=== PATIENT | female | born 1995 | race Caucasian/White ===

== ENCOUNTER 2021-03-15 08:00 | Outpatient (RCR) | payer BC, SELFPAY ==
[2021-03-13 13:31] LABS: Hematocrit 38.5 % (37.0-47.0); Hemoglobin 13.4 g/dL (12.0-15.0)
[2021-03-13 13:45] LABS: Glucose 1 Hour PP 50gm Dose 105 mg/dL
[2021-03-13 14:03] LABS: Vitamin D 25 Hydroxy 85.8 ng/mL
[2021-03-13 14:26] LABS: HIV 1/2 Ab P24 Ag Result Negative (Negative)
[2021-03-15] MEDS: RHO(D) IMMUNE GLOBULIN 300 MCG/2 ML SYRINGE IM (07:25)
== END 2021-06-11 23:59 | disposition home or self-care (01) ==
LOC: ANHLAB 08:00
PROVIDERS: Visit Provider Obstetrics & Gynecology
DX: Z11.4 Encounter for screening for human immunodeficiency virus [HIV] (principal); Z29.13 Encounter for prophylactic Rho(D) immune globulin; O36.0190 Maternal care for anti-D [Rh] antibodies, unspecified trimester, not applicable or unspecified; Z3A.00 Weeks of gestation of pregnancy not specified
CPT/HCPCS: 36415; 82306; 82947; 85014; 85018; 85461; 86703; 90384; 96372; G0432; J2790

== ENCOUNTER 2021-05-29 04:52 | Inpatient (IN) | payer BC, SELFPAY ==
[2021-05-29] VITALS (64 sets, daily range): BP systolic 106–132; BP diastolic 60–95; PULSE 25–125; RESP 16–18; TEMP 36.6–37.1; O2SAT 79–100; BMI 27.3
--- NOTE | 2021-05-29 04:52 | LDADM ---
This patient, Albertina Parkinson, was admitted to Labor/Delivery/Recovery 105 on 05/29/21 at 04:52. Plans for labor, pain management and were discussed with patient. Patient/family oriented to hospital policies and general routines including ID bracelet, bed and alarms, visiting hours, pain management, procedures, bathroom and other care routines, personal items, smoking policy, room service/diet and guest tray routines, security routines, and visiting hours. Patient/Family are encouraged to report perceived risks to care and to ask questions if they do not understand what they are told or what they should do. See OBIX for further documentation.
--- NOTE | 2021-05-29 05:08 | WPDANESEPP ---
Anes - Eval Pre Procedure Procedure: labor epidural Date/Time: 05/29/21 05:08 Surgeon: nazia Preop Diagnosis: pain during labor Pre Op Diagnosis: IOL Patient Data Age: 25 Gender: F Height: Weight: Allergies Allergy/AdvReac Type Severity Reaction Status Date / Time No Known Allergies Allergy Verified 03/15/21 07:25 Home Medications Medication Instructions Recorded Confirmed Type PNV cmb#95-ferrous fumarate-FA 1 tablet PO DAILY 05/02/21 05/02/21 History [] Patient hx anesthesia problems: none Family hx anesthesia problems: none Results Review: All pre-operative results and documents have been reviewed as part of the pre-operative evaluation. PMFSH Past Medical History Medical History (Updated 05/29/21 @ 05:08 by Loreta Wild CRNA) IUP (intrauterine ), incidental Family History Family History (Updated 05/02/21 @ 12:45 by Jojo Gandhi RN) Other No pertinent family history Social History Social History Substance use: never Spiritual care concerns: No Exam Day of Procedure 05/29/21 05:08
[2021-05-29 05:28] LABS: Basophils Absolute Auto 0.1 K/mm3 (0.0-0.1); Basophils Percent Auto 0.4 % (0.2-1.2); Eosinophils Absolute Auto 0.1 K/mm3 (0-0.3); Eosinophils Percent Auto 0.6 % (0-4.4); Hematocrit 35.6 % (37.0-47.0); Hemoglobin 12.4 g/dL (12.0-15.0); Immature Granulocyte Absolute 0.08 K/mm3 (0.00-0.031); Immature Granulocyte Percent A 0.6 % (0-0.5); Lymphocytes Absolute Auto 2.55 K/mm3 (0.9-3.2); Lymphocytes Percent Auto 19.2 % (18.3-44.2); Mean Corpuscular HGB Conc 34.8 g/dl (32-36); Mean Corpuscular Hemoglobin 34.1 pg (26-34); Mean Corpuscular Volume 97.8 fl (80-100); Mean Platelet Volume 9.2 fl (7.4-10.4); Monocytes Absolute Auto 0.7 K/mm3 (0.1-0.6); Monocytes Percent Auto 5.5 % (2.6-8.5); Neutrophils Absolute Auto 9.8 K/mm3 (1.3-6.7); Neutrophils Percent Auto 73.7 % (45.5-73.1); Platelet Count Result 237 k/mm3 (150-375); Red Blood Count 3.64 M/mm3 (4.2-5.4); Red Cell Distribution Width 12.2 % (11.5-14.5); White Blood Count 13.3 K/mm3 (4.5-10.0)
[2021-05-29] MEDS: LACTATED RINGERS 1,000 ML 125 ML IV CONT (05:33)
[2021-05-29] MEDS: OXYTOCIN 30 UNITS/NS 500 ML 30 UNITS/500 ML BAG 6 UNITS IV CONT (05:34)
[2021-05-29 06:08] LABS: Rapid Plasma Reagin Non-Reactive (NonReactive)
--- NOTE | 2021-05-29 07:44 | WPDOBADMIT ---
Obstetrics - Admit Note Admission Note: record reviewed. No pertinent additions to the history and/or any subsequent changes in the physical findings that are not consistent with the expected course of the were found. Additions to the history and/or subsequent changes in the physical findings follow. Here for MIL at 39 wks. Cervix 4/80/-1 AROM with clear fluid. FHTs reactive.
--- NOTE | 2021-05-29 10:53 | PM.OBPRVD ---
OB - Delivery Note Procedure Delivery date: 05/29/21 Procedure: Induction method: AROM and Per Pitocin Protocol Delivery monitor: External FHT and External Uterine Route of delivery: Laceration Description: Periurethral and Vaginal (right) Delivery repair: vicryl (3-0) Specimen: No Quantitative Blood Loss (ml): 150 Anesthesia type: Local Disposition: Floor Baby Date of : 05/29/21 Weeks of gestation at delivery: 39 presentation: vertex position: Right Occiput Anterior Placenta delivery description: Spontaneous Cord Vessel Description: 3 Vessels score one minute: 7 score five minutes: 9
--- NOTE | 2021-05-29 10:54 | P.DS_ITS ---
DS: Admitting Diagnosis Discharge Date 05/30/21 Admitting Diagnosis IUP 39 wks for HERMILA DS: Discharge Diagnosis Discharge Diagnosis (1) 39 weeks gestation of : Code(s): Z3A.39 - 39 weeks gestation of Status: Acute (2) (normal spontaneous vaginal delivery): Code(s): O80 - Encounter for full-term uncomplicated delivery Status: Acute OB - DS: Summary OB Procedures : Ultrasound OB Procedures Intrapartum: Spontaneous Vag Delivery OB Procedures: : None Peripartum Data Infant Delivery Method: Natural Vaginal Laceration Description: Periurethral and Vaginal - 1st Degree complications: none Status at Discharge Functional status at discharge: independent ambulation Overall status at discharge: patient is progressing back to baseline Time Spent with Patient Time attestation: Total time spent providing and/or coordinating discharge services: DS: Data Data Completed and Pending Labs on day of discharge: Labs from last 24 hours 05/29/21 05/29/21 05/29/21 05:14 05:14 05:14 WBC 13.3 H RBC 3.64 L Hgb 12.4 Hct 35.6 L MCV 97.8 MCH 34.1 H MCHC 34.8 RDW 12.2 Plt Count 237 MPV 9.2 Immature Gran % (Auto) 0.6 H Neut % (Auto) 73.7 H Lymph % (Auto) 19.2 [place] % (Auto) 5.5 Eos % (Auto) 0.6 Baso % (Auto) 0.4 Lymph # (Auto) 2.55 [place] # (Auto) 0.7 H Eos # (Auto) 0.1 Baso # (Auto) 0.1 Abs Immat Gran (auto) 0.08 H Absolute Neuts (auto) 9.8 H Absolute Nucleated RBC 0.0 Nucleated RBC % 0.0 RPR Non-reactive Blood Type A Negative Antibody Screen Positive Antibody Identification Passive Due to RH Imm Glob Antigen Identification Cancelled BEBETO, IgG Interpret Not Performed BEBETO, Poly Interpret Neg BEBETO, Complement Interp Not Performed Discharge Plan Discharge Attending physician on discharge: Michaela Jeffers Discharging Clinician: Michaela Jeffers Anticipated Discharge Date/Time: 05/30/21 10:55 Patient Disposition: Home, Self-Care Activity: may shower and pelvic rest Diet: regular Patient Instructions: Antibiotic Form Stand Alone Forms: General Discharge Information Follow-up/Referrals: Michaela Jeffers MD [Physician] - 6 Weeks Discharge Medications: Continued PNV cmb#95-ferrous fumarate-FA [] 28 mg iron- 800 mcg Tablet 1 tablet PO DAILY RF: 0 Date of admission: 05/29/21 04:52 Primary Care Provider: PHYSICIAN,HR ADMINISTRATIVE ASSISTANT Admitting Provider: Michaela Jeffers Attending physician on admission: Michaela Jeffers Condition: Stable Care Plan Goals: Plans Condoms for control
[2021-05-29] MEDS: OXYTOCIN 30 UNITS/NS 500 ML 30 UNITS/500 ML BAG 125 UNITS IV CONT (11:12)
[2021-05-29] MEDS: WITCH HAZEL 40 PADS 1 PAD TOPICAL (11:47)
[2021-05-29] MEDS: IBUPROFEN 600 MG TABLET PO ×3 (11:48→23:03)
[2021-05-29] MEDS: BENZOCAINE 20% AER SPR (*SP) 56 GM CAN 1 SPRAY TOPICAL (11:48)
--- NOTE | 2021-05-29 14:07 | OBPPTRN ---
Patient transferred to post room # 291 wheelchair. Support person present and infant accompanied pt to floor. Oriented to unit, room, information board, rooming in, admission packet and security measures. Patient introductions made and plan of care discussed per post , pain management, breast feeding, daily care activities. PT and fob both recipients of such instructions and no barriers to learning identified at this time. PT received such instructions per one to one discussion mom baby care guide book and demonstrations this shift. PT verbalized understanding of such care.
[2021-05-29] MEDS: ACETAMINOPHEN 325 MG TABLET 650 MG PO ×2 (17:11→23:03)
[2021-05-29] MEDS: LANOLIN (LANSINOH) 7.5 GM CREAM 1 APPLIC TOPICAL (17:13)
[2021-05-30 04:00] VITALS: BP 117/77; PULSE 87; RESP 16; TEMP 36.6; O2SAT 99
[2021-05-30] MEDS: ACETAMINOPHEN 325 MG TABLET 650 MG PO (05:11)
[2021-05-30] MEDS: IBUPROFEN 600 MG TABLET PO ×2 (05:11→13:20)
[2021-05-30 05:51] LABS: Hematocrit 29.3 % (37.0-47.0); Hemoglobin 10.2 g/dL (12.0-15.0)
--- NOTE | 2021-05-30 07:52 | P.PNOB_ITS ---
OB - PN: Subj Subjective Date/time seen: 05/30/21 07:52 Patient comments: no complaints and pain well controlled baby status: doing well OB - PN: Obj Data Labs CBC & Chem 7: 05/30/21 04:09 Labs: Laboratory Results - last 24 hr 05/30/21 04:09 Hgb 10.2 L Hct 29.3 L OB - PN A/P Plan day: 1 Plan: routine care, discharge home, follow up 6 weeks and other (plans condoms) Time Spent With Patient Time: Total time spent is greater than 50% in coordination of care (as documente d) at patient's floor/unit and/or counseling patient: Exam : Bimanual exam- vagina & uterus: other (Uterus firm, nt @U)
[2021-05-30 08:35] VITALS: BP 111/73; PULSE 77; RESP 16; TEMP 36.4; O2SAT 100
[2021-05-30 09:00] VITALS: PULSE 77; RESP 16; O2SAT 100
--- NOTE | 2021-05-30 11:24 | PC.NURSE ---
Introductions were made and mother led the conversation with regards to her experience feeding her baby. Reminded parents to use good handwashing to prevent infection. has had 7 feedings in the past 24 hours and meets the outcomes for weight, output and jaundice. Mother states she feels confident to continue effectively her at home. Reviewed production of human milk, transition of milk, signs of adequate intake and engorgement prevention/relief and when to call the care provider using the elimination sheet & mom and baby guide. Reviewed community resources and outpatient services as listed in the mom and baby guide/[facility] website. Reinforced watching for feeding cues with responsive feeding and how to stimulate to initiate feeding three hours from the start of the last feeding. Mother voiced understanding of information shared. Asked to call out to have next feeding assessed. Reported to primary RN.
--- NOTE | 2021-05-30 11:53 | PC.NURSE ---
Consulted with patient, demonstrated stimulation techniques to wake for feeding. was latched independently by mom to breast. Reviewed positioning/alignment, holding breast and asymmetrical latch on. Infant was able to latch correctly. Infant nursed eagerly, with steady draws and frequent swallowing noted. Reviewed signs of a correct latch, effective nursing and suck swallow ratio. was able to maintain latch without discomfort to mother. Nipple care reviewed. Instructed mother to call out for RN assistance if she is unable to latch infant for feeding or she has discomfort with nursing. Instructed feeding should be initiated three hours from start of last feeding or if feeding cues are noted before. Mother voiced understanding of information shared.
[2021-05-30] MEDS: MULTIVIT/MIN/PREN/FOL AC/IRON TABLET 1 TAB PO (13:20)
[2021-05-30] MEDS: DOCUSATE SODIUM 100 MG CAPSULE PO (13:20)
[2021-05-30] MEDS: WITCH HAZEL 40 PADS 1 PAD TOPICAL (13:20)
[2021-05-31 11:16] VITALS: BP 116/71; PULSE 95; RESP 20; TEMP 36.9; O2SAT 100
== END 2021-05-30 14:37 | disposition home or self-care (01) | DRG 807 ==
LOC: ANHLDR 10:55 → ANHOB2 14:10
PROVIDERS: Admitting Provider Obstetrics & Gynecology Gynecology; Visit Provider Obstetrics & Gynecology Gynecology
DX: O70.0 First degree perineal laceration during delivery (principal); Z37.0 Single live birth; Z3A.39 39 weeks gestation of pregnancy; O71.82 Other specified trauma to perineum and vulva
CPT/HCPCS: 36415; 85014; 85018; 85025; 86592; 86850; 86880; 86900; 86901; A9270; J2590; J7120

== ENCOUNTER 2023-07-23 01:59 | Day surgery (SDC) | payer BC, SELFPAY ==
[2023-07-22 16:20] VITALS: BMI 22.8
--- NOTE | 2023-07-22 16:26 | PC.NURSE ---
Report to the Outpatient Waiting Room, entrance under the green pavilion located off [facility], at time 0600 on date 07/23/2023. Planned Procedure Time: 0730. Time changes happen often and if your time is changed the preop area will call you the afternoon before. - You and your visitor will be asked to self-screen and do not enter if you have any COVID symptoms. - A mask is optional within the hospital at this time. Patients may have clear liquids (water, carbonated beverages, clear teas, apple juice) until 3 hours prior to surgery with a maximum of 20 ounces. - No food from midnight until time of surgery - Infants may have breast milk until 4 hours before surgery, formula 6 hours prior to surgery. - Children will be allowed to drink immediately following surgery. If applicable, please bring a bottle or sippy cup to assist with drinking. Juice, water, soda, and popsicles are readily available. For infants on formula, please bring formula the day of surgery. Pacifiers are allowed. Take the following medications with a SIP of water the morning of surgery: N/A DO NOT STOP ANY OF YOUR OTHER PRESCRIPTION MEDICATIONS PRIOR TO SURGERY ?EXCEPT THE FOLLOWING Medications to discontinue per physician vitamin Date to take last dose 07/22/2023 Please no make-up, nail estonian, hairspray, perfume, deodorant, or body powder the day of surgery. No jewelry (including any body piercings) or valuables the day of surgery, leave them at home. Please take a shower or bath the night before, or the morning of, surgery with an antibacterial soap. Wear comfortable, loose fitting clothing. Children are encouraged to wear pajamas. - Jewelry must be removed prior to entering the operating room. Rings and piercings that are not removed may be cut off. - The hospital will not accept responsibility for valuables. - Please leave all valuables, including medications, at home the day of surgery. If you are going home after surgery, a licensed tow motor driver must drive you home. - NO public transportation without another adult if you receive anesthesia. - We recommend that an adult stay with you for 24 hours following discharge. - We also recommend that you do not drive, make important decision, drink alcoholic beverages, or take any drugs that were not prescribed by your health care provider for at least 24 hours after your discharge time. For Pediatric surgeries, we recommend two adults accompany the child home. Follow any additional instructions given to you from your surgeon. If you or anyone in your household have experienced Covid symptoms in the past week, please notify your surgeon or the nurse liaison at the phone number below for possible testing. Telephone instructions given to Albertina Parkinson and asked if any additional questions and then verbalized understanding. Patient advised to call surgeon office or pre surgery nurse liaison [phone] if any additional questions.
[2023-07-23 06:35] VITALS: BP 125/72; PULSE 105; RESP 16; TEMP 36.3; O2SAT 100
[2023-07-23] MEDS: LACTATED RINGERS 1,000 ML 30 ML IV CONT (06:38)
[2023-07-23] MEDS: ACETAMINOPHEN 500 MG TABLET 1000 MG PO (06:38)
--- NOTE | 2023-07-23 07:09 | WPDHPUPDATE1 ---
History and Physical Update Update Date/Time: 07/23/23 07:09 History and Physical has been reviewed, including an updated exam of the patient. There are NO changes in the patient's condition. Risks, benefits, and alternatives have been discussed and questions answered. Patient agrees to proceed with procedure.
--- NOTE | 2023-07-23 07:09 | PM.HPGS ---
History of Present Illness History of Present Illness Consent: Risks, benefits, and alternatives have been discussed and questions answered. Patient agrees to proceed with procedure. Chief complaint: missed AB Narrative: Albertina Parkinson is a 27 year old female at 12 and 6/7 by dates but only 10 weeks and 2 days by ultrasound with no heart tones. The patient has no vaginal bleeding. Options were reviewed and the patient has elected to proceed with suction D& C. Risks of infection, bleeding, perforation, ordered reviewed. Patient voices understanding and agrees to proceed. Postop expectations are discussed Review of Systems Review of Systems: not repeated day of surgery; patient states no changes in status [facility] Past Medical History Medical History (Updated 07/23/23 @ 07:12 by Michaela Jeffers MD) Anxiety (normal spontaneous vaginal delivery) Family History Family History (Updated 05/02/21 @ 12:45 by Jojo Gandhi RN) Other No pertinent family history Social History Social History Smoking status: Never smoker Second hand tobacco smoke exposure: No Substance use: never Substance use type: does not use Living arrangements: with family Spiritual care concerns: No Meds Home Medications and Allergies Home Medications Medication Instructions Recorded Confirmed Type vit no.95-ferrous 1 tablet PO DAILY 05/02/21 07/22/23 History fumarate 28 mg-folic acid 800 mcg tablet () Allergies Allergy/AdvReac Type Severity Reaction Status Date / Time No Known Allergies Allergy Verified 07/23/23 06:40 Vital Signs Vital Signs - 24 hr 07/23/23 06:35 Temperature 97.3 F L Pulse Rate 105 H Respiratory Rate 16 Blood Pressure 125/72 Pulse Oximetry 100 Oxygen Delivery Room Air Exam Const: General: healthy appearing and alert Orientation/consciousness: patient oriented x3 Resp: Effort & Inspection: normal respiratory effort GI: GI Palp: Yes Soft to palpation, No Tenderness to palpation present (GI) and No Palpable mass present : External Female Exam: normal external appearance Speculum Exam - Vagina: normal appearance of the vagina and normal vaginal discharge Speculum Exam - Cervix: normal appearance of the cervix Bimanual exam- vagina & uterus: consistency normal Bimanual Exam- Adnexa, other: normal adnexae and No adnexal tenderness Neuro: General: patient oriented x3 Assessment and Plan Assessment and plan (1) Missed : Code(s): O02.1 - Missed Status: Acute Assessment and Plan: plan to proceed with suction D&C
--- NOTE | 2023-07-23 07:17 | P.PNAN_ITS ---
Anes - Initial Pre Proc Eval Procedure: Operation Date: 07/23/23 07:30 Proposed Procedures p Suction Dilation and Curettage - Michaela Jeffers MD Date/Time: 07/23/23 07:17 Surgeon: Michaela Jeffers MD Pre Op Diagnosis: missed AB Patient Data Age: 27 Gender: F Height: 1.57 m Weight: 55.9 kg Last Vital Signs Temp 97.3 F L 07/23/23 06:35 Pulse 105 H 07/23/23 06:35 Resp 16 07/23/23 06:35 BP 125/72 07/23/23 06:35 Pulse Ox 100 07/23/23 06:35 O2 Del Method Room Air 07/23/23 06:35 Allergies Allergy/AdvReac Type Severity Reaction Status Date / Time No Known Allergies Allergy Verified 07/23/23 06:40 Home Medications Medication Instructions Recorded Confirmed Type vit no.95-ferrous 1 tablet PO DAILY 05/02/21 07/22/23 History fumarate 28 mg-folic acid 800 mcg tablet () Laboratory Tests 07/23/23 06:24 Blood Type A Negative Antibody Screen Pending Screen Pending Baby's Blood Type Pending Baby's BEBETO Pending Doses of RhIg Required Pending Patient hx anesthesia problems: none Family hx anesthesia problems: none Results Review: All pre-operative results and documents have been reviewed as part of the pre- operative evaluation. [facility] Past Medical History Medical History (Updated 07/23/23 @ 07:12 by Michaela Jeffers MD) Anxiety (normal spontaneous vaginal delivery) Family History Family History (Updated 05/02/21 @ 12:45 by Jojo Gandhi RN) Other No pertinent family history Social History Social History Smoking status: Never smoker Second hand tobacco smoke exposure: No Substance use: never Substance use type: does not use Living arrangements: with family Spiritual care concerns: No Anes - Eval Final PreProcedure Day of Procedure 07/23/23 07:17 Patient weight: normal Heart: regular rate and rhythm Lungs: clear to auscultation Airway: Mallampati scale class II Neurological: alert and oriented Last oral intake: >/= 8 hours ASA classification: II Emergent: no Anesthetic plan: proceed Anesthesia type and monitoring: general GIVS and standard monitoring Results Review: All pre-operative results and documents have been reviewed as part of the pre- operative evaluation. Informed Consent: The patient's anesthetic plan and its attendant risks and benefits were discussed with the patient/family/POA. Questions were solicited and answers provided to the satisfaction of the patient/family/POA.
[2023-07-23] MEDS: LIDOCAINE HCL 1% LOCAL INJ 10 ML VIAL INFILTRATE (07:34)
[2023-07-23] MEDS: KETOROLAC 30 MG/ML VIAL (*BKC) IV PUSH (07:47)
--- NOTE | 2023-07-23 07:58 | W.PM.PROC2 ---
Procedure Note - Detailed Date of Procedure 07/23/23 Pre-op Diagnosis missed AB Post-op Diagnosis Same Procedure Performed Suction D&C Surgeon Michaela Jeffers MD Anesthesia MAC and Local Findings uterus sounds to 12cm moderate products of conception Description of Procedure The patient is taken to the operating room and placed under anesthesia in the dorsal lithotomy position. She was prepped and draped in the usual sterile fashion. [place] speculum was placed in the vagina and the cervix grasped on the anterior lip with a tenaculum. The uterus is sounded to 12cm. The cervix is injected in each quadrant with 1% lidocaine. The cervix is serially dilated to an 8 [place]. The 8mm curved suction curette is used to evacuate the uterus until no further products were noted in the tubing. The sharp curette is then used until a good uterine cry was noted in all areas. One additional pass with the suction curette was taken. No additional products were noted in the tubing. All instruments are removed. Sponge, needle, and instrument counts are correct per the OR staff. The patient was awakened from anesthesia and taken to recovery in stable condition. Estimated Blood Loss 100 Drains No Packing No Pathology Yes ( Products of conception) Complications No immediate complications Condition Stable Disposition PACU
[2023-07-23 07:59] VITALS: BP 115/102; PULSE 88; RESP 18; O2SAT 99
[2023-07-23 08:20] VITALS: BP 103/56; PULSE 72; RESP 16; O2SAT 100
[2023-07-23] MEDS: RHO(D) IMMUNE GLOBULIN 300 MCG/2 ML SYRINGE IM (08:42)
[2023-07-23 08:50] VITALS: BP 109/65; PULSE 74; RESP 16
[2023-07-23 09:10] VITALS: BP 113/58; PULSE 69; RESP 14
== END 2023-07-23 09:16 | disposition home or self-care (01) ==
PROVIDERS: Visit Provider Obstetrics & Gynecology Gynecology
PROC: (CPT 59820; principal; 2023-07-23 07:30)
DX: O02.1 Missed abortion (principal)
CPT/HCPCS: 59820; 36415; 85461; 86850; 86900; 86901; 88305; 90384; A9270; J1885; J2210; J2250; J2704; J2790; J3010; J7120